=== PATIENT | female | born 1980 | race Caucasian/White ===

== ENCOUNTER 2020-07-11 13:10 | Outpatient (CLI) | payer OTHER, SELFPAY ==
--- NOTE | 2020-07-11 13:16 | US_ITS ---
WS: [id number] ULTRASOUND EARLY TECHNIQUE: Transabdominal sonography of the pelvis was performed. Followed by transvaginal sonography to better evaluate the uterus and ovaries. CLINICAL INFORMATION: SUPERVISION NORMAL Beta hCG: Unknown. COMPARISON: None. FINDINGS: UTERUS AND GESTATIONAL SAC Intrauterine gestations: Single live intrauterine with cardiac activity. Small amount of veliz bchorionic hemorrhage. Recommend short interval follow-up. Echogenic nodule within the gestational sa c may represent retracted clot. Estimated gestational age: 6w0d Yolk sac: 0.3 cm. [place] rump length (CRL): 0.3 cm. heart motion: 100 BPM. Subchorionic hemorrhage: Present Hypoechoic uterine lesion measuring 4.3 x 3.3 cm consistent with fibroid. OVARIES Right ovary: Right ovarian cyst measuring 1.9 x 1.5 x 1.6 cm. Additional complex right ovarian hemorr hagic cyst or corpus luteum cyst measuring 2.5 x 2.1 cm Left ovary: Normal. FREE FLUID Trace US/US OB <=14 wk fetus w transvag IMPRESSION: 1. Single live intrauterine . 2. Estimated gestational age; 6w0d. Estimated delivery March 06, 2021 3. Visualized cardiac activity and yolk sac. 4. Small amount of subchorionic hemorrhage. Recommend short interval follow-up . 5. Incidental right ovarian cyst. 6. Complex right ovarian hemorrhagic cyst or corpus luteum cyst measuring 2.5 cm
== END 2020-07-11 13:11 | disposition home or self-care (01) ==
PROVIDERS: PCP Nurse Practitioner Family; Visit Provider Family Medicine
DX: Z3A.01 Less than 8 weeks gestation of pregnancy (principal); O46.8X1 Other antepartum hemorrhage, first trimester; N83.201 Unspecified ovarian cyst, right side
CPT/HCPCS: 76801; 76817

== ENCOUNTER 2020-07-27 10:52 | Outpatient (CLI) | payer OTHER, SELFPAY ==
--- NOTE | 2020-07-27 10:55 | US_ITS ---
WS: [id number] OB ultrasound, 07/27/2020 Clinical Data: SUBCHRIONIC HEMATOMA Comparison: OB ultrasound, 07/11/2020. Findings: There is a single interuterine . There is a uterine fibroid measuring 3.70 x 4.23 x 4.30 cm in the uterus. There is also a smaller fibroid measuring 0.87 x 1.26 x 1.35 cm. heart rate is 1 67 beats per minute. The cervix is 3.42 cm and closed. The small subchorionic hematoma is smaller and it has almost totally resolved. There is a yolk sac present. The crown-rump length measured 1.7 cm. The estimated gestational age 8w1d is with an JARROD of approximately 03/07/2021. The left ovary measured 1.6 cm x 2.6 cm x 1.5 cm. The right ovary measured 2.1 cm x 2.6 cm x 3.6 cm. There is a right ovarian cyst measuring 1.41 x 1.5 4 x 1.66 cm. There is no fluid in the cul-de-sac US/US OB <=14 wk fetus w transvag Impression: 1. Single interuterine . 2. Estimated gestational age of 8w1d with an JARROD of 03/07/2021. 3. heart rate 167 beats per minute.
== END 2020-07-27 10:53 | disposition home or self-care (01) ==
LOC: US 10:53
PROVIDERS: PCP Nurse Practitioner Family; Visit Provider Family Medicine
DX: O43.891 Other placental disorders, first trimester (principal); Z3A.08 8 weeks gestation of pregnancy
CPT/HCPCS: 76801; 76817

== ENCOUNTER 2020-10-11 08:48 | Outpatient (CLI) | payer OTHER, SELFPAY ==
--- NOTE | 2020-10-11 08:55 | US_ITS ---
WS: [id number] ULTRASOUND TRANSABDOMINAL REASON FOR EXAM: ANATOMY/SUPERVISION OF NORMAL : 3 PARA: 0 COMPARISON: None available. FINDINGS: Single mild fetus in the breech presentation. Cervical length is 4.19 cm cm; closed. Small fibroid of uterus. Placenta grade 0, anterior and fundal with no low-lying segments. Normal three-vessel cord with temi l placental and insertion sites. cardiac tones 150 BPM. Four-chamber heart not well documented. Normal stomach, kidneys, and bladder. Normal lateral ventricles, cerebellum, and cisterna magnum. Normal extremities. Unable to see facial profile due to position. Biparietal diameter measures 4.4 cm, equals 19w3d. Head circumference measures 16.6 cm, equals 19w2d. Abdomen circumference measures 13.8 cm, equals 19w1d. Femur length measures 3.2 cm, equals 19w6d. Estimated gestational age 19w3d An estimated delivery 03/04/2021. Estimated weight 295 g. US/US OB >= 14 weeks fetus [id number] IMPRESSION: Single live intrauterine . Estimated gestational age 19w3d and estima lynette delivery 03/04/2021. Facial profile and four-chamber heart not well documented on this examination.
== END 2020-10-11 08:49 | disposition home or self-care (01) ==
LOC: RAD 08:51
PROVIDERS: PCP Family Medicine; Visit Provider Family Medicine
DX: Z34.92 Encounter for supervision of normal pregnancy, unspecified, second trimester (principal); Z3A.19 19 weeks gestation of pregnancy
CPT/HCPCS: 76805

== ENCOUNTER 2020-10-23 11:44 | Outpatient (CLI) | payer OTHER, SELFPAY ==
--- NOTE | 2020-10-23 11:46 | US_ITS ---
WS: [id number] [place] [id number] REASON FOR EXAM: SUPERVISION NORMAL FINDINGS: position has changed so that this examination documents a normal profile with normal cord insertion into the abdomen. Normal four-chamber heart is documented with normal outflow tracts. US/[place] [id number] IMPRESSION: profile and four-chamber heart are documented as normal on this follow-up examination.
== END 2020-10-23 11:45 | disposition home or self-care (01) ==
LOC: RAD 11:44
PROVIDERS: PCP Family Medicine; Visit Provider Family Medicine
DX: Z34.00 Encounter for supervision of normal first pregnancy, unspecified trimester (principal)
CPT/HCPCS: 76816

== ENCOUNTER 2020-10-29 17:55 | Outpatient (CLI) | payer OTHER, SELFPAY ==
[2020-10-29] VITALS (13 sets, daily range): BP systolic 0–145; BP diastolic 0–72; PULSE 84–96; RESP 16–17; TEMP 36.6–36.7; O2SAT 99; BMI 38.0
--- NOTE | 2020-10-29 18:36 | US_ITS ---
WS: [id number] ULTRASOUND OB LIMITED TECHNIQUE: Limited ultrasound examination of the fetus. CLINICAL INFORMATION: possible ROM COMPARISON: October 23, 2020 FINDINGS: Markedly decreased amniotic fluid volume compared to October 23, 2020 consistent with rupt ure of membranes. Single interuterine gestation. presentation is cephalic Placental location is anterior. Placenta grade: 0. heart rate 160 BPM. Anatomy: BDP: 5.2 cm = 21w4d HC: 19.4 cm = 21w5d AC: 16.7 cm = 21w5d FEMUR LENGTH: 3.7 cm = 21w5d Estimated weight: 443 g EGA by ultrasound: 21w5d JARROD by ultrasound: 03/06/2021 US/US OB limited [id number] IMPRESSION: 1. Single intrauterine gestation with estimated gestational age 21 weeks 5 day s and estimated delivery March 06, 2021 2. Placenta is anterior. 3. Markedly decreased amniotic fluid volume consistent with rupture of membran es.
--- NOTE | 2020-10-29 19:19 | P.HP_ITS ---
Providers/Chief Complaint Primary Care Provider: Kenroy Hawkins MD Chief Complaint: Vaginal Discharge History of Present Illness Lashonda Carr is a 39 year old at 21.5 weeks gestation by 6-week ultrasound. The patient was unsure of her LMP due to irregular periods. Her is complicated by miscarriage x2, small subchorionic hemorrhage on initial ultrasound, obesity, chronic colitis, low progesterone on suppleme ntation through first trimester, positive quad screen of 1 in 242 risk for Down syndrome, rubella nonimmune. The patient was in her normal state of health when she noticed a weird sensation in her vaginal area followed by a pop and significant fluid leakage. This took place at approximately 5:45 PM on 10/29/2020. The patient said it was uncontrollable. She came directly to the hospital and had further leakage of fluid in the wheelchair. The fluid on the chair was nitrazine positive. The patient did not have any contractions prior to or since this happened. I did a sterile spec exam without gel and pulling of amniotic fluid was noted in the vaginal vault with a strongly positive nitrazine. The patient was noted to be closed thick and high. For this reason the patient was admitted. The patient states that over the last few weeks she has had a cough that seem to clear. She will cough so hard sometimes that she will throw up. She was started on azithromycin on 10/16/2020 to cover for possible secondary infection. The patient denies any fevers, sore throat, nasal congestion, shortness of breath, chest pains, diarrhea, constipation, dysuria, vaginal bleeding, contractions. Medications/Allergies Allergies Allergy/AdvReac Type Severity Reaction Status Date / Time Penicillins Allergy ALGY-Anaphy Verified 10/29/20 19:58 laxis PFSH Acute PFSH: Surgical History (Updated 10/29/20 @ 19:25 by Kenroy Hawkins MD) History of tonsillectomy Social History (Updated 10/29/20 @ 19:25 by Kenroy Hawkins MD) Smoking and tobacco status: never smoked Alcohol intake: former Former alcohol use details: No alcohol since becoming . Substance/Drug Use: never Female Reproductive History: : 3 Vitals/I&O/Wt Last Vital Signs Pulse 96 10/29/20 19:14 BP 122/71 10/29/20 19:14 Physical Exam Narrative: EXAM NARRATIVE: General: Alert and oriented x3 Eyes: Pupils equal round and reactive to light and accommodation Mouth: Mucous membranes moist, pharynx non-erythematous Cardiac: Regular rate and rhythm without murmurs Lungs: Clear to auscultation bilaterally without wheezes, crackles or rhonchi Abdomen: Soft, non-tender, fundus consistent with gestational age Extremities: Trace edema in the bilateral lower extremities Pelvic: There is a large amount of fluid pooling in the vaginal vault that is clear and has no odor. Nitrazine is strongly positive. Cervix is visually closed, thick and high. No blood is noted. Data Other Labs: labs: Labs done on 07/06/2020 at [facility]: Progesterone level 8.8 ng/mL Labs done on 07/13/2020 at [facility]: White blood cell count 6.9 Hemoglobin 12.2 MCV 78.6 Platelet count 271 Progesterone level 6.6 ng/mL Antibody screen negative Blood type A positive RPR nonreactive Hepatitis B surface antigen nonreactive Rubella antibody less than 0.90 -patient is not immune to rubella HIV fourth-generation nonreactive Progesterone level 6.6 ng/mL TSH 2.69 Labs done on 09/13/2020 at [facility]: Quad screen: Result - Down syndrome risk 1 in 242. Age risk for Down syndrome 1 and 118. Trisomy 18 risk 1 in 3252 Risk for open neural tube defect less than 1 in 5000 A&P Additional A&P Information Lashondabishop Carr is a 39 year old at 21.5 weeks gestation by 6-week ultrasound. The patient was unsure of her LMP due to irregular periods. Her is complicated by unconfirmed miscarriage x2, small subchorionic hemorrhage on initial ultrasound, obesity, chronic colitis, low progesterone on supplementation through first trimester, positive quad screen of 1 in 242 risk for Down syndrome, rubella nonimmune, now with premature rupture of membranes at 21.5 weeks gestation. I spoke with the patient and her regarding the very concerning findings of PPROM at this gestational age. I spoke with them regarding the fact that chances of survival at this stage are very low and the only possible hope would be to prolong the by a number of weeks, however even then the risks would be quite high. I discussed the possibility of observation and transfer to a higher level of care where a NICU is available depending on the course. They would like to proceed with transfer to a higher level of care at this time. They would like to have everything done possible yet seem to have reasonable expectations. I spoke with Dr. Dio العراقي at [facility] in [place], [place] and he agreed to accept the patient in transfer. He stated that he will go ahead and give antibiotics and steroids if indicated at their facility after consultation with perinatology. He also said that he will do a Covid swab at his facility after arrival. GBS and bacterial vaginosis swabs were collected here. Those are currently pending. Of note the patient states that her parents told her that she almost as a child from a reaction to penicillin. The patient and her are in agreement with the current plan of care. Proceed with transfer of care as above. If you have any questions regarding the patient's care, please feel free to contact Dr. Kenroy Hawkins at [facility]. Call for questions. Consider this my final progress note. Attestations Medical Necessity Statement*: The patient is currently inpatient and her stay will require greater than 2 midnights upon transfer. Coding Level of Care Code Acute Bone Plant Supervisor for Renay Yanes
[2020-10-29 20:18] LABS: Basophils # 0.1 10^3/uL (0.0-0.1); Basophils % 0.5 %; Eosinophils # 0.1 10^3/uL (0.0-0.8); Eosinophils % 1.3 %; Hematocrit 40.7 % (37.0-47.0); Lymphocytes # 2.3 10^3/uL (0.8-4.8); Lymphocytes % 20.8 %; Mean Corpuscular HGB Conc 31.9 g/dL (30.0-36.0); Mean Corpuscular Hemoglobin 25.9 pg (28.0-34.0); Mean Corpuscular Volume 81.2 fL (81-99); Mean Platelet Volume 9.6 fL (7.4-10.4); Monocytes # 0.6 10^3/uL (0.2-0.9); Monocytes % 5.5 %; Neutrophils # 7.98 10^3/uL (1.8-7.7); Neutrophils % 71.5 %; Nucleated Red Blood Cells % 0 %; Platelet Count 277 10^3/cmm (130-400); Red Blood Count 5.01 10^6/uL (4.1-5.3); White Blood Count 11.2 10^3/uL (4.0-10.0)
[2020-10-29] MEDS: dextrose 5%-lactated ringers 1,000 ML 125 ML IV (20:20)
--- NOTE | 2020-10-29 20:27 | PC.NURSE ---
Report called to Roger Montgomery RN at [facility].
[2020-10-29 20:33] LABS: Alanine Aminotransferase 13 U/L (0-33); Albumin Level 3.5 g/dL (3.5-5.2); Alkaline Phosphatase 157 IU/L (35-105); Anion Gap 13.5 (5-19); Aspartate Amino Transferase 12 U/L (0-32); Blood Urea Nitrogen 7 mg/dL (6-20); Calcium 9.3 mg/dL (8.5-10.5); Carbon Dioxide 22 mmol/L (22-29); Chloride 103 mmol/L (98-107); Globulin 3.2 g/dL (1.3-4.6); Glomerular Filtration Rate 178.6 mL/min (90-130); Glucose 101 mg/dL (65-115); Osmolality Calculated 278 mOsm/kg (285-295); Potassium 3.5 mmol/L (3.5-5.1); Sodium 135 mmol/L (136-145); Total Bilirubin 0.2 mg/dL (0.15-1.2); Total Protein 6.7 g/dL (6.6-8.7)
[2020-10-29] MEDS: ondansetron 2 mg/ML SDV 2 mL 4 MG IVP (21:04)
--- NOTE | 2020-10-29 21:15 | PC.NURSE ---
Doppler heart tones in the 150's at this time.
--- NOTE | 2020-10-29 21:27 | PC.NURSE ---
EMS at bedside, report given and transfer of care at this time.
--- NOTE | 2020-10-29 22:12 | PC.NURSE ---
at nurses station, order received to transfer patient via ambulance to [facility], Dr. العراقي is the accepting physician. Upon discharging patient there was no transfer order in computer, physician not present in facility at this time. Spoke to Taylor Carr, detective supervisor, received authorization to enter physicians verbal order into record.
== END 2020-10-29 21:27 | disposition home or self-care (01) ==
LOC: OPOB 17:56 → OBGYN 10-30 07:56
PROVIDERS: PCP Family Medicine; Visit Provider Family Medicine
DX: O26.899 Other specified pregnancy related conditions, unspecified trimester (principal); Z3A.00 Weeks of gestation of pregnancy not specified; N89.8 Other specified noninflammatory disorders of vagina
CPT/HCPCS: 36415; 76805; 76815; 80053; 83986; 85025; 87070; 87081; 87106; 87205; 96360; 96375; 99211; J2405

== ENCOUNTER → 2021-09-05 14:30 | Outpatient (BNVA) | payer BC, SELFPAY | PROVIDERS: PCP Family Medicine; Referring Provider Family Medicine; Visit Provider Nurse Practitioner Women's Health | DX: N93.9 Abnormal uterine and vaginal bleeding, unspecified (principal) | CPT/HCPCS: 84443; 85025 ==

== ENCOUNTER → 2021-09-12 08:10 | Outpatient (BNVA) | payer BC, SELFPAY | PROVIDERS: PCP Family Medicine; Visit Provider Obstetrics & Gynecology | DX: N93.9 Abnormal uterine and vaginal bleeding, unspecified (principal) | CPT/HCPCS: 76830 ==

== ENCOUNTER → 2021-10-18 13:50 | Outpatient (BNVA) | payer BC, SELFPAY | PROVIDERS: PCP Family Medicine; Visit Provider Obstetrics & Gynecology | DX: Z20.822 Contact with and (suspected) exposure to COVID-19 (principal); N93.9 Abnormal uterine and vaginal bleeding, unspecified | CPT/HCPCS: 87635 ==

== ENCOUNTER 2021-10-23 07:53 | Day surgery (SDC) | payer BC, SELFPAY ==
[2021-10-22 14:34] VITALS: BMI 38.3
[2021-10-23 08:07] VITALS: BP 132/85; PULSE 105; RESP 18; TEMP 37.1; O2SAT 97
[2021-10-23 08:28] LABS: OR HCG Qualitative Urine Negative (Negative)
[2021-10-23] MEDS: acetaminophen 1,000 MG/100 ML PIGGYBACK 400 MG IV (08:29)
[2021-10-23] MEDS: sodium chloride 0.9% 1,000 ML 30 ML IV (08:29)
[2021-10-23] MEDS: ketorolac 30 mg/mL INJ IVP (08:30)
--- NOTE | 2021-10-23 08:51 | P.ANESASSM_ITS ---
Pre-Anesthetic Assessment Pre-Anesthetic Assessment: Height/Weight: Height 1.7 m Weight 111.13 kg Temp Pulse Resp BP Pulse Ox 98.7 F 105 H 18 132/85 97 10/23/21 08:07 10/23/21 08:07 10/23/21 08:07 10/23/21 08:07 10/23/21 08:07 Preop Diagnosis: uterine leiomyoma Proposed Procedure: Operation Date: 10/23/21 09:25 Proposed Procedures p Hysteroscopy w/ Myosure(Not Applicable) - Adeline Najera MD s Dilation And Curettage (D&C)(Not Applicable) - Adeline Najera MD Was Beta Mitzy taken within 24 hours: N/A Was Clonidine taken within 24 hours: N/A Last intake: Intake Last Liquid Date 10/22/21 Last Liquid Time 22:00 Last Solid Date 10/22/21 Last Solid Time 21:00 Social: Social History: No tobacco Exam: Pre-Anes Outpt Exam: alert, oriented x 3, clear to auscultation bilaterally and regular rate & rhythm Airway: Submandibular: WNL Cervical ROM: WNL MP: 2 Dentition: Full History/ROS: No significant history except as noted Pulmonary: Pulmonary: None reported CV/HEM: Comments: Recurrent uterine bleeding with symptoms including syncope (while lying down) w/o head trauma. : : None reported Hepatic: Hepatic: None reported GI: GI: None reported Metabolic: Metabolic: None reported Neuropsych: Neuropsych: None reported Anesthetic Plan: ASA status: 2 Anesthesia: Anesthesia Evaluation, General and MAC Risk of > 500 ml blood loss (7ml/kg in children): No Other Pertinent Information: Discussed risk of anesthetic and benefits. Plan MAC w/ possible conversion to general. Discussed nature of MAC being a spectrum of anesthesia between very awake and alert to deep/general anesthesia. We discussed risks with a real possibility of recall of conversations, monitor sounds, surgical sensation/pain, and other stimuli. We discussed goals of MAC including patient's overall comfort (though intermittent pain is possible), patient safety breathing spontaneously with supplemental O2, successful completion of the procedure, and facilitation of more rapid recovery from anesthesia. Meds/Allergies Current Medications: Current Medications Generic Name Dose Route Start Last Admin Trade Name Freq PRN Reason Stop Dose Admin Sodium Chloride 1,000 mls @ 30 ml s/hr 10/23/21 08:00 10/23/21 08:29 Sodium Chloride 0.9% IV 10/24/21 07:59 30 mls/hr .Q24H GABBIE Administration PFSH Anesthesia PFSH: Medical History No pertinent past medical history neghx: htn,dm,thyroid,dvt/pe PCP: [facility] History of tonsillectomy and adenoidectomy as a child Family History Grandfather Colon cancer Maternal--dx age 80's Stroke Maternal Father Hypercholesteremia Hypertension Grandmother No problems noted. Denies family history of Ovarian cancer Diabetes Heart disease Breast cancer Uterine cancer Thyroid disease Female Reproductive History: Date of last menstrual period: 10/03/21 Data Anesthesia Other Labs: Laboratory Results - last 48 hr 10/23/21 08:27 Urine HCG, Qual Negative Cardiac Studies: No Data to Display
[2021-10-23] MEDS: doxycycline 100 MG in sodium chloride 0.9% (plus) 100 ML IV (10:05)
--- NOTE | 2021-10-23 10:17 | W.PM.OPSUD ---
Surgery/Procedure H&P Update DATE OF PROCEDURE: October 23, 2021 DATE H&P PERFORMED: 10/18/21 H&P UPDATE INFORMATION: I have reviewed H&P completed within last 30 days, I have examined patient prior to procedure and No changes to prior documentation PREOP DIAGNOSIS: uterine leiomyoma PLANNED PROCEDURE: Operation Date: 10/23/21 09:25 Proposed Procedures p Hysteroscopy w/ Myosure(Not Applicable) - Adeline Najera MD s Dilation And Curettage (D&C)(Not Applicable) - Adeline Najera MD Related Problem List Diagnoses (1) Uterine leiomyoma:
--- NOTE | 2021-10-23 11:18 | PM.OP ---
Operative Report Date of procedure: October 23, 2021 Pre-op Diagnosis: uterine leiomyoma Post-op diagnosis: same Post-op Findings: Thickened endometrium Procedure Done: hysteroscopy, dilation and curettage with myosure Specimens removed/disposition: endometrial curettings to pathology Anesthesia: MAC Estimated blood loss (mL): 2 IV fluids (mL): 500 Complications: none Findings: 7 week sized uterus 300 ml hysteroscopy deficit Condition: stable Disposition: same day Procedure: The patient was taken to the operating room where monitored anesthesia was administered and to be adequate. She was prepped and draped in the normal sterile fashion in the dorsal lithotomy position in [facility]. A weighted speculum was placed into the vagina and the anterior lip of the cervix grasped with a single-tooth tenaculum. The uterus was sounded to 7 cm. The cervix was dilated to 17 [place]. The hysteroscope was advanced into the endometrial cavity. There was excessive tissue visualized. The MyoSure device was activated and the tissue was removed. Pictures were taken pre procedure. there was bleeding from the fibroids making the fluid too murky for photos. All instruments were removed. The patient tolerated the procedure well. Sponge lap and needle counts were correct x3. She was taken to the recovery room in stable condition.
[2021-10-23 11:26] VITALS: BP 109/65; PULSE 96; RESP 14; TEMP 36.2; O2SAT 94
--- NOTE | 2021-10-23 11:26 | PM.DCS ---
Discharge Providers Date of Discharge: October 23, 2021 Attending Provider at Discharge: Adeline Najera MD Primary Care Provider: Kenroy Hawkins MD Diagnoses at Discharge Discharge Diagnosis (1) Uterine leiomyoma: Status: Acute Reason for Visit Reason for Visit: abnormal uterine bleeding Hospital Course Hospital Course The patient was admitted for surgery. she did well postoperatively and was ready for discharge. She had an insulin level drawn prior to discharge. She will follow up in 1 week for postop. Discharge Data Data Completed and Pending: Pending at discharge Category Date Time Status ES surgery / GI i mages Routine Exams 10/23/21 10:22 Taken Pathology: Surgic al [PTH] Routine Pth 10/23/21 11:17 Ordered Labs from last 24 hours 10/23/21 08:27 Urine HCG, Qual Negative Vitals: Last Vital Signs Temp 98.7 F 10/23/21 08:07 Pulse 105 H 10/23/21 08:07 Resp 18 10/23/21 08:07 BP 132/85 10/23/21 08:07 Pulse Ox 97 10/23/21 08:07 Discharge Plan Discharge Patient Disposition: Home Condition: Stable Prescriptions: Continued Low-Ogestrel (28) 0.3-30 mg-mcg tablet 1 tab PO DAILY Qty: 28 RF: 12 ibuprofen 800 mg tablet 800 mg PO Q8H RF: 0 Discharge Orders: Discharge Order (Routine); Ordered 10/23/21 Ordered By: Adeline Najera Discharge Attestations Time Spent in Discharge Care*: less than 30 min Quality Metrics Clinical Quality Measures During this hospital stay, did patient experience: None Coding Level of Care Code Acute Chg FW DC note Diagnoses Uterine leiomyoma D25.9
[2021-10-23 11:30] VITALS: BP 108/77; PULSE 96; RESP 16; TEMP 36.5; O2SAT 95
[2021-10-23 11:38] VITALS: BP 102/63; PULSE 104; RESP 18; TEMP 36.1; O2SAT 97
[2021-10-23 11:52] VITALS: BP 102/63; PULSE 103; RESP 18; TEMP 36.6; O2SAT 98
[2021-10-23] MEDS: ibuprofen 800 mg tablet PO (12:05)
--- NOTE | 2021-10-23 15:48 | ANE.PACU2 ---
Inpatient post-anesthesia follow up: Airway intact: Yes Vital signs: Temperature 97.8 F Pulse Rate 103 Respiratory Rate 18 Blood Pressure 102/63 Pulse Oximetry 98 Oxygen Delivery Me thod Room Air Oxygen Flow Rate Fraction of Inspir ed Oxygen Hydration adequate: Yes Nausea and vomiting: No Pain level: 4 Mental status: Baseline
== END 2021-10-23 12:17 | disposition home or self-care (01) ==
PROVIDERS: PCP Family Medicine; Visit Provider Obstetrics & Gynecology
PROC: 0UDB8ZZ Extraction of Endometrium, Via Natural or Artificial Opening Endoscopic (ICD-10-PCS; CPT 58558; principal; 2021-10-23 09:20)
PROC: (CPT 58120; 2021-10-23 09:20)
DX: D25.9 Leiomyoma of uterus, unspecified (principal); R93.89 Abnormal findings on diagnostic imaging of other specified body structures
CPT/HCPCS: 58558; 81025; 84703; 88305; 96365; J1885; J2405; J2704; J3010; J3490; J7030

== ENCOUNTER → 2021-10-29 15:05 | Outpatient (BNVA) | payer BC, SELFPAY | PROVIDERS: PCP Family Medicine; Visit Provider Obstetrics & Gynecology | DX: E66.01 Morbid (severe) obesity due to excess calories; N92.6 Irregular menstruation, unspecified | CPT/HCPCS: 83036; 83525 ==

== ENCOUNTER 2022-06-13 07:29 | Emergency (ER) | payer BC, SELFPAY ==
[2022-06-13] VITALS (7 sets, daily range): BP systolic 109–127; BP diastolic 64–80; PULSE 74–101; RESP 14–15; TEMP 36.4–36.6; O2SAT 96–99; BMI 38.4
--- NOTE | 2022-06-13 07:47 | W.ED.WEAKNES ---
HPI - Weakness General: Chief complaint: Weakness Stated complaint: Weakness Time Seen by Provider: 06/13/22 07:31 Source: patient Mode of arrival: ambulatory History of Present Illness: 41-year-old female at 17 weeks gestation. Presents with stomach upset mild upper respiratory symptoms and vomiting. She has had symptoms last 2 to 3 days.. No fever sweats chills no productive cough. Has not had any vaginal bleeding AC/A dysuria urgency or frequency. Subjective low-grade fever at home. MD Complaint: generalized weakness Onset (ago): day(s) (2-3) Duration: constant Location: generalized Severity: mild Relieving factors: none Exacerbating factors: none Associated symptoms: Reports decreased appetite, nausea and vomiting; Denies chest pain, chills, confusion, melena, diaphoresis, dysuria, easy bruising, fever(s), headache(s), myalgias, rash, short of breath or syncope Review of Systems Const: Denies: fever(s), chills or diaphoresis ENMT: Denies: throat pain, ear or mastoid pain, nasal discharge or nasal congestion Card: Denies: chest pain or syncope Resp: Denies: dyspnea, productive cough or non-productive cough GI: Reports: nausea, vomiting and GI cramping; Denies: abdominal pain, hematemesis, diarrhea, bloating, hematochezia or melena : Denies: flank pain, difficulty voiding, dysuria, urinary frequency or urinary urgency Skin/Breast: Denies: rash or pruritus Neuro: Denies: headache(s) or confusion Los/Lymph: Denies: easy bruising PFSH ED PFSH: Medical History No pertinent past medical history neghx: htn,dm,thyroid,dvt/pe PCP: [facility] Surgical History History of tonsillectomy and adenoidectomy as a child Family History Grandfather Colon cancer Maternal--dx age 80's Stroke Maternal Father Hypercholesteremia Hypertension Grandmother No problems noted. Denies family history of Ovarian cancer Diabetes Heart disease Breast cancer Uterine cancer Thyroid disease Female Reproductive History: Date of last menstrual period: 10/03/21 Physical Exam Const: COMMON NORMALS: no acute distress GENERAL APPEARANCE: cooperative and comfortable ORIENTATION/CONSCIOUSNESS: Yes awake, Yes oriented to person, Yes oriented to place and Yes oriented to time HENMT: COMMON NORMALS: normocephalic, atraumatic and hearing grossly normal bilaterally HEAD & SCALP: normocephalic and atraumatic Resp: COMMON NORMALS: normal respiratory effort, No retractions, No use of accessory muscles and clear to auscultation bilaterally AUSCULTATION: clear to auscultation bilaterally Cardio: COMMON NORMALS: regular rate, regular rhythm and No murmurs present (Cardio) RATE: regular rate RHYTHM: regular rhythm GI: COMMON NORMALS: Soft to palpation and No hepatosplenomegaly present AUSCULTATION: Yes normoactive bowel sounds PALPATION: Yes Soft to palpation, No Tenderness to palpation present (GI), No Guarding due to palpation present (GI) and Yes No hepatosplenomegaly present Extremity: COMMON NORMALS: normal to inspection, capillary refill normal, no clubbing, cyanosis or edema, no calf tenderness and no pedal edema Neuro: SENSORIUM/ORIENTATION: Yes oriented to person, Yes oriented to place and Yes oriented to time Skin: COMMON NORMALS: no rashes or lesions noted GENERAL SKIN EXAM: no rashes or lesions noted Course Vital Signs: Vital signs: Vital Signs Temperature 97.5 F L 06/13/22 08:12 Pulse Rate 81 06/13/22 12:00 Respiratory Rate 15 06/13/22 08:12 Blood Pressure 118/67 06/13/22 12:00 Pulse Oximetry 98 06/13/22 12:00 Oxygen Delivery Me thod 06/13/22 12:00 MDM - Weakness Medical Decision Making Improved with IV fluids. Clear liquid diet for 24 to 48 hours promethazine to use as needed advance diet as tolerated Medical Records I reviewed the patient's medical records. Lab Data I reviewed the patient's lab results. : 06/13/22 08:00 06/13/22 08:00 Laboratory Results WBC 6.7 10^3/uL (4.0-10.0) 06/13/22 08:00 RBC 5.05 10^6/uL (4.1-5.3) 06/13/22 08:00 Hgb 12.1 g/dL (11.5-15.3) 06/13/22 08:00 Hct 38.0 % (37.0-47.0) 06/13/22 08:00 MCV 75.2 fl (81-99) L 06/13/22 08:00 MCH 24.0 pg (28.0-34.0) L 06/13/22 08:00 MCHC 31.8 g/dL (30.0-36.0) 06/13/22 08:00 RDW 15.0 % (12.1-15.1) 06/13/22 08:00 Plt Count 265 10^3/cmm (130-400) 06/13/22 08:00 MPV 9.9 fL (7.4-10.4) 06/13/22 08:00 Neut % (Auto) 66.2 % 06/13/22 08:00 Lymph % (Auto) 21.0 % 06/13/22 08:00 [place] % (Auto) 10.2 % 06/13/22 08:00 Eos % (Auto) 1.5 % 06/13/22 08:00 Baso % (Auto) 0.3 % 06/13/22 08:00 Neut # (Auto) 4.41 10^3/uL (1.8-7.7) 06/13/22 08:00 Lymph # (Auto) 1.4 10^3/uL (0.8-4.8) 06/13/22 08:00 [place] # (Auto) 0.7 10^3/uL (0.2-0.9) 06/13/22 08:00 Eos # (Auto) 0.1 10^3/uL (0.0-0.8) 06/13/22 08:00 Baso # (Auto) 0.0 10^3/uL (0.0-0.1) 06/13/22 08:00 Nucleated RBC % (auto) 0 % 06/13/22 08:00 Nucleated RBCs # 0.0 /100WBC 06/13/22 08:00 Sodium 136 mmol/L (136-145) 06/13/22 08:00 Potassium 3.7 mmol/L (3.5-5.1) 06/13/22 08:00 Chloride 102 mmol/L (98-107) 06/13/22 08:00 Carbon Dioxide 20 mmol/L (22-29) L 06/13/22 08:00 Anion Gap 17.7 (5-19) 06/13/22 08:00 BUN 6 mg/dL (6-20) 06/13/22 08:00 Creatinine 0.4 mg/dL (0.5-0.9) L 06/13/22 08:00 GFR Calculation 176.8 mL/min (90-130) H 06/13/22 08:00 Glucose 93 mg/dL (65-115) 06/13/22 08:00 Calculated Osmolality 279 mOsm/kg (285-295) L 06/13/22 08:00 Calcium 8.8 mg/dL (8.5-10.5) 06/13/22 08:00 Total Bilirubin 0.2 mg/dL (0.15-1.2) 06/13/22 08:00 AST 10 U/L (0-32) 06/13/22 08:00 ALT 10 U/L (0-33) 06/13/22 08:00 Alkaline Phosphatase 139 IU/L (35-105) H 06/13/22 08:00 Total Protein 6.2 g/dL (6.6-8.7) L 06/13/22 08:00 Albumin 3.2 g/dL (3.5-5.2) L 06/13/22 08:00 Globulin 3.0 g/dL (1.3-4.6) 06/13/22 08:00 Urine Color Yellow (Yellow) 06/13/22 09:35 Urine Appearance Clear (CLEAR) 06/13/22 09:35 Urine pH 6 (5-7) 06/13/22 09:35 Ur Specific [place] 1.010 (1.005-1.030) 06/13/22 09:35 Urine Protein Neg (Negative) 06/13/22 09:35 Urine Glucose (UA) Norm (Normal) 06/13/22 09:35 Urine Ketones 1+ (Negative) H 06/13/22 09:35 Urine Blood 3+ (Negative) H 06/13/22 09:35 Urine Nitrate Negative (Negative) 06/13/22 09:35 Urine Bilirubin Neg (Negative) 06/13/22 09:35 Urine Urobilinogen 1 mg/dL (Negative) H 06/13/22 09:35 Ur Leukocyte Esterase Negative (Negative) 06/13/22 09:35 Urine RBC Too numerous to cnt /hpf (0-2) H 06/13/22 08:20 Urine WBC 10-15 /hpf (0-5) H 06/13/22 08:20 Ur Squamous Epith Cells 80-100 /hpf (0-5) H 06/13/22 08:20 Calcium Oxalate Crystal 0-4 /hpf H 06/13/22 08:20 Amorphous Sediment Not Reportable 06/13/22 08:20 Urine Bacteria 2+ /hpf (NONE) H 06/13/22 08:20 Discharge Plan Discharge Patient Disposition: Home Clinical Impression: Nausea & vomiting, Condition: Stable Prescriptions: New promethazine 25 mg tablet 25 mg PO Q6H PRN (Reason: nausea and vomiting) Qty: 20 0RF No Action ondansetron 4 mg tablet,disintegrating 4 mg PO Q6H PRN (Reason: Nausea) prenat.vits,malka,oed-[id number] Tablet 1 tab PO DAILY Discharge Orders: Discharge ED (Routine); Ordered 06/13/22 Ordered By: Armando Munoz Referrals: Kenroy Hawkins MD [Primary Care Provider] - Discharge Diet: Clear Liquid Discharge Activity: Increase activity as tolerated Patient Instructions: Opioid Safety Activity Restrictions/Additional Instructions: Trial of the promethazine instead of ondansetron for nausea. Recheck with your primary care physician/OB tomorrow. Stand Alone Forms: Work/School Release Coding Level of Care Code ED Crawler Tractor Operator for Renay Yanes
[2022-06-13] MEDS: promethazine 25 mg/mL SDV 1 mL IM (08:05)
[2022-06-13] MEDS: sodium chloride 0.9% 1,000 ML 999 ML IV ×2 (08:13→11:00)
[2022-06-13 08:16] LABS: Basophils % 0.3 %; Eosinophils # 0.1 10^3/uL (0.0-0.8); Eosinophils % 1.5 %; Hemoglobin 12.1 g/dL (11.5-15.3); Lymphocytes # 1.4 10^3/uL (0.8-4.8); Mean Corpuscular HGB Conc 31.8 g/dL (30.0-36.0); Mean Corpuscular Volume 75.2 fl (81-99); Mean Platelet Volume 9.9 fL (7.4-10.4); Monocytes # 0.7 10^3/uL (0.2-0.9); Monocytes % 10.2 %; Neutrophils # 4.41 10^3/uL (1.8-7.7); Neutrophils % 66.2 %; Nucleated Red Blood Cells % 0 %; Platelet Count 265 10^3/cmm (130-400); Red Blood Count 5.05 10^6/uL (4.1-5.3); White Blood Count 6.7 10^3/uL (4.0-10.0)
[2022-06-13 08:58] LABS: Alanine Aminotransferase 10 U/L (0-33); Albumin Level 3.2 g/dL (3.5-5.2); Alkaline Phosphatase 139 IU/L (35-105); Anion Gap 17.7 (5-19); Aspartate Amino Transferase 10 U/L (0-32); Blood Urea Nitrogen 6 mg/dL (6-20); Calcium 8.8 mg/dL (8.5-10.5); Carbon Dioxide 20 mmol/L (22-29); Chloride 102 mmol/L (98-107); Glomerular Filtration Rate 176.8 mL/min (90-130); Glucose 93 mg/dL (65-115); Osmolality Calculated 279 mOsm/kg (285-295); Potassium 3.7 mmol/L (3.5-5.1); Sodium 136 mmol/L (136-145); Total Bilirubin 0.2 mg/dL (0.15-1.2); Total Protein 6.2 g/dL (6.6-8.7)
[2022-06-13 09:09] LABS: Glucose Urine UA Norm (Normal); Ketones Urine 1+ (Negative); Protein Urine 1+ (Negative); Urine Appearance Hazy (CLEAR); Urine Color Yellow (Yellow); pH Urine 6 (5-7)
[2022-06-13 09:10] LABS: Add Urine Microscopic? YES; Bilirubin Urine 2+ (Negative); Blood Urine 3+ (Negative); Leukocyte Esterase Urine 2+ (Negative); Nitrate Urine Negative (Negative); Urobilinogen Urine 4 mg/dL (Negative)
[2022-06-13 09:13] LABS: RBC Urine TOO NUMEROUS TO CNT /hpf (0-2)
[2022-06-13 09:16] LABS: Add Urine Culture? Yes; Bacteria Urine 2+ /hpf; Calcium Oxalate Crystals Urine 0-4 /hpf; Squamous Epithelial Cell Urine 80-100 /hpf (0-5)
[2022-06-13 11:01] LABS: Charge for UA Resulting for Rev
[2022-06-13 11:28] LABS: Urine Color Yellow (Yellow)
[2022-06-13 11:29] LABS: Bilirubin Urine Neg (Negative); Blood Urine 3+ (Negative); Glucose Urine UA Norm (Normal); Ketones Urine 1+ (Negative); Leukocyte Esterase Urine Negative (Negative); Nitrate Urine Negative (Negative); Protein Urine Neg (Negative); Urine Appearance Clear (CLEAR); Urobilinogen Urine 1 mg/dL (Negative); pH Urine 6 (5-7)
[2022-06-13 11:31] LABS: Add Urine Microscopic? YES
== END 2022-06-13 12:20 | disposition home or self-care (01) ==
PROVIDERS: Emergency Provider Family Medicine; PCP Family Medicine
DX: O26.892 Other specified pregnancy related conditions, second trimester (principal); R11.2 Nausea with vomiting, unspecified; Z3A.17 17 weeks gestation of pregnancy
CPT/HCPCS: 51701; 80053; 81001; 81003; 85025; 87086; 96360; 96372; 99284; J2550; J7030

== ENCOUNTER 2022-07-04 06:33 | Outpatient (CLI) | payer BC, SELFPAY ==
--- NOTE | 2022-07-04 07:12 | US_ITS ---
WS: [id number] OB ultrasound, 07/04/2022 Clinical Data: 18 WEEKS GESTATION Comparison: None. Findings: There is a single intrauterine in a variable lie. The placenta is Anterior and grade 0. The re is a normal amount of amnionic fluid. The heart rate is 144 beats per minute. The cervix is 5.10 cm and closed. Measurements of growth and development: BPD: 4.6 cm 20 weeks 0 days HC: 17.5 cm 20 weeks 0 days AC: 15.7 cm 20 weeks 6 days FL: 3.4 cm 19 weeks 3 days The estimated weight is 365 or approximately 13 ounces. The estimated gestational age is 20w3d with an JARROD of approximately 11/18/2022. anatomy show a normal stomach, kidneys, bladder, cord insertion, three-vessel cord, cord insert ion, entire spine, upper and lower extremities, RVOT, LVOT, four-chamber heart, lateral cerebral vent ricles, cerebellum and cisterna magna. The mouth was seen but the lips and nose were not well visuali zed. The brain structures were not well visualized. Female gender was noted. US/US OB >= 14 weeks fetus [id number] Impression: 1. Single intrauterine in vertex presentation. 2. Estimated gestational age 20w3d with an JARROD of 11/18/2022. 3. heart rate 144 beats per minute.
== END 2022-07-04 06:34 | disposition home or self-care (01) ==
LOC: RAD 06:35
PROVIDERS: PCP Family Medicine; Visit Provider Family Medicine
DX: Z34.92 Encounter for supervision of normal pregnancy, unspecified, second trimester (principal); Z3A.20 20 weeks gestation of pregnancy
CPT/HCPCS: 76805

== ENCOUNTER 2022-07-30 05:46 | Outpatient (CLI) | payer BC, SELFPAY ==
[2022-07-30] VITALS (54 sets, daily range): BP systolic 100–149; BP diastolic 60–94; PULSE 88–179; RESP 16–17; TEMP 36.1; O2SAT 94–100; BMI 39.6
--- NOTE | 2022-07-30 06:11 | US_ITS ---
WS: [id number] ULTRASOUND OB FOCUSED HISTORY: Possible premature rupture of membranes. COMPARISON: 07/04/2022 Cervical canal is widely open. There is cervical insufficiency. New finding since 07/04/2022. ab domen is noted along the lower uterine segment. Amniotic fluid index is 16.6 cm. heart rate at 144 BPM. US/US OB limited [id number] IMPRESSION: 1. Marked cervical insufficiency. Cervical canal is widely patent. 2. Normal amniotic fluid index remains. Notified Tressa Wall MD at time of examination.
[2022-07-30] MEDS: betamethasone susp 6 mg/mL 5 mL 12 MG IM (06:22)
[2022-07-30] MEDS: magnesium sulfate premix 4 GM/100 ML PREMIX IV (07:06)
[2022-07-30] MEDS: dextrose 5%-lactated ringers 1,000 ML 75 ML IV (07:07)
[2022-07-30 07:15] LABS: Basophils # 0.1 10^3/uL (0.0-0.1); Basophils % 0.6 %; Eosinophils # 0.2 10^3/uL (0.0-0.8); Hematocrit 35.9 % (37.0-47.0); Hemoglobin 11.1 g/dL (11.5-15.3); Lymphocytes # 1.8 10^3/uL (0.8-4.8); Mean Corpuscular HGB Conc 30.9 g/dL (30.0-36.0); Mean Corpuscular Hemoglobin 24.2 pg (28.0-34.0); Mean Corpuscular Volume 78.4 fl (81-99); Mean Platelet Volume 10.2 fL (7.4-10.4); Monocytes # 0.7 10^3/uL (0.2-0.9); Monocytes % 6.5 %; Neutrophils # 7.86 10^3/uL (1.8-7.7); Neutrophils % 73.2 %; Nucleated Red Blood Cells % 0 %; Platelet Count 245 10^3/cmm (130-400); Red Blood Count 4.58 10^6/uL (4.1-5.3); Red Cell Distribution Width 14.8 % (12.1-15.1); White Blood Count 10.7 10^3/uL (4.0-10.0)
[2022-07-30] MEDS: magnesium sulfate premix 20 GM/500 ML BAG IV (07:30)
[2022-07-30 07:36] LABS: Nitrazine Paper, PH Positive
--- NOTE | 2022-07-30 07:58 | ANES.PREANE2 ---
Pre-Anesthetic Assessment Height/Weight: Height 1.68 m Weight 111.584 kg Temp Pulse BP Pulse Ox 97.0 F L 93 142/83 99 07/30/22 05:54 07/30/22 07:55 07/30/22 07:46 07/30/22 07:55 Preop Diagnosis: uterine leiomyoma Medications/Allergies Home Medications Medication Instructions Recorded Confirmed Last Taken Type prenat.vits,malka,uli-jrea-ylugt 1 tab PO DAILY 06/13/22 07/30/22 Unknown History Allergies Allergy/AdvReac Type Severity Reaction Status Date / Time Penicillins Allergy ALGY-Anaphy Verified 07/30/22 06:39 laxis Current Medications Generic Name Dose Route Start Last Admin Trade Name Freq PRN Reason Stop Dose Admin Betamethasone Acet/Betameth SodPhos 12 mg 07/30/22 06:15 07/30/22 06:22 Betamethasone Susp 6 Mg/Ml 5 Ml IM 07/31/22 06:16 12 mg Q24H GABBIE Administration Dextrose/Lactated Ringer's 1,000 mls @ 125 mls/hr 07/30/22 07:00 07/30/22 07:07 Dextrose 5%-Lactated Ringers IV 75 mls/hr .Q8H GABBIE Administration Vancomycin HCl 2,000 mg/ 500 mls @ 250 mls/hr 07/30/22 07:30 07/30/22 07:16 Sodium Chloride IV 250 mls/hr Q8H GABBIE Administration As Directed [facility] Anesthesia Medical History No pertinent past medical history neghx: htn,dm,thyroid,dvt/pe PCP: [facility] Surgical History History of tonsillectomy and adenoidectomy as a child Family History Grandfather Colon cancer Maternal--dx age 80's Stroke Maternal Father Hypercholesteremia Hypertension Grandmother No problems noted. Denies family history of Ovarian cancer Diabetes Heart disease Breast cancer Uterine cancer Thyroid disease Female Reproductive History Date of last menstrual period: 10/03/21 : 2 Data Anesthesia : 07/30/22 06:50 Short CBC 07/30/22 Range/Units 06:50 WBC 10.7 H (4.0-10.0) 10^3/uL Hgb 11.1 L (11.5-15.3) g/dL Hct 35.9 L (37.0-47.0) % MCV 78.4 L (81-99) fl Plt Count 245 (130-400) 10^3/cmm Neut % (Auto) 73.2 % Neut # (Auto) 7.86 H (1.8-7.7) 10^3/uL Blood Bank 07/30/22 06:50 Blood Type A Positive Rho(D) Type Positive Antibody Screen Negative Cardiac Studies: No Data to Display
--- NOTE | 2022-07-30 08:30 | PM.TDS ---
Transfer Summary Providers Date of Admission: 07/30/22 08:02 Date of Discharge/Transfer: 07/30/22 Attending Provider at Admission: Tressa Wall MD Attending Provider at Transfer: Tressa Wall MD Primary Care Provider: Kenroy Hawkins MD Transfer Plans: Anticipated date of transfer: 07/30/22. Reason for Visit Reason for Visit Vaginal Bleeding, 23.6 weeks Hospital Course Hospital Course This is a 41-year-old G2, P0 at 23 weeks 6 days gestation with an JARROD of 11/20/2022 who presented complaining of vaginal bleeding. She woke up this morning to urinate and when she stood up she felt like she urinated on herself. This was not uncommon for her. She went to the restroom to put on a pad and noticed that she had some pink spotting. After that she had some light bleeding on the pad that was bright red. She presented to labor and delivery. She was complaining of some minor cramping. heart tones were reassuring in the 140s. She was horace approximately once every 8 minutes. Her vaginal vault was moist and bloodstained. Ultrasound was immediately performed and it was noted that her cervix is open (about 1/4 of the width of the presenting part) at its narrowest/external os. Fluid around the appears normal. The infant is breech. She was immediately started on betamethasone 12 mg IM, vancomycin because she is allergic to penicillins, and magnesium. She currently is not horace on the Mag. She has had no further bleeding. I contacted the laborist Dr. Santamaria at [facility] who is willing to accept the patient. She will be transferred via helicopter. She has a prior history of demise at 22 weeks gestation due to SROM/no fluid. For that her labor was induced. Physical Exam Narrative: Alert and oriented, supine in Trendelenburg, heart regular rate and rhythm, lungs clear to auscultation bilaterally, abdomen is soft and nontender, extremities have no calf tenderness. Urinary Catheter Management: Guillermo: Cath Placed During This Visit: yes Urinary Catheter Date of Insertion: 07/30/22 Urinary Catheter Time of Insertion: 07:00 TS Data Studies Completed and Pending Pending at discharge Category Date Time Status Retype for Patiets ABO/Rh Routine Lab 07/30/22 07:49 Ordered Labs from last 24 hours 07/30/22 07/30/22 06:50 06:50 WBC 10.7 H RBC 4.58 Hgb 11.1 L Hct 35.9 L MCV 78.4 L MCH 24.2 L MCHC 30.9 RDW 14.8 Plt Count 245 MPV 10.2 Neut % (Auto) 73.2 Lymph % (Auto) 17.0 [place] % (Auto) 6.5 Eos % (Auto) 2.0 Baso % (Auto) 0.6 Neut # (Auto) 7.86 H Lymph # (Auto) 1.8 [place] # (Auto) 0.7 Eos # (Auto) 0.2 Baso # (Auto) 0.1 Nucleated RBC % (auto) 0 Nucleated RBCs # 0.0 Blood Type A Positive Rho(D) Type Positive Antibody Screen Negative Completed Studies During Hospitalization Category [place] [id number] Stat Ultrasound 07/30/22 06:11 Completed Laboratory Last Values WBC 10.7 10^3/uL (4.0-10.0) H 07/30/22 06:50 RBC 4.58 10^6/uL (4.1-5.3) 07/30/22 06:50 Hgb 11.1 g/dL (11.5-15.3) L 07/30/22 06:50 Hct 35.9 % (37.0-47.0) L 07/30/22 06:50 MCV 78.4 fl (81-99) L 07/30/22 06:50 MCH 24.2 pg (28.0-34.0) L 07/30/22 06:50 MCHC 30.9 g/dL (30.0-36.0) 07/30/22 06:50 RDW 14.8 % (12.1-15.1) 07/30/22 06:50 Plt Count 245 10^3/cmm (130-400) 07/30/22 06:50 MPV 10.2 fL (7.4-10.4) 07/30/22 06:50 Neut % (Auto) 73.2 % 07/30/22 06:50 Lymph % (Auto) 17.0 % 07/30/22 06:50 [place] % (Auto) 6.5 % 07/30/22 06:50 Eos % (Auto) 2.0 % 07/30/22 06:50 Baso % (Auto) 0.6 % 07/30/22 06:50 Neut # (Auto) 7.86 10^3/uL (1.8-7.7) H 07/30/22 06:50 Lymph # (Auto) 1.8 10^3/uL (0.8-4.8) 07/30/22 06:50 [place] # (Auto) 0.7 10^3/uL (0.2-0.9) 07/30/22 06:50 Eos # (Auto) 0.2 10^3/uL (0.0-0.8) 07/30/22 06:50 Baso # (Auto) 0.1 10^3/uL (0.0-0.1) 07/30/22 06:50 Nucleated RBC % (auto) 0 % 07/30/22 06:50 Nucleated RBCs # 0.0 /100WBC 07/30/22 06:50 Blood Type A Positive 07/30/22 06:50 Rho(D) Type Positive 07/30/22 06:50 Antibody Screen Negative 07/30/22 06:50 Radiology Impressions Obstetrics Ultrasound 07/30/22 06:11 IMPRESSION: 1. Marked cervical insufficiency. Cervical canal is widely patent. 2. Normal amniotic fluid index remains. Notified Tressa Wall MD at time of examination. Recent Clincial Data Last Vital Signs Temp 97.0 F L 07/30/22 05:54 Pulse 105 H 07/30/22 08:27 BP 131/76 07/30/22 08:27 Pulse Ox 94 07/30/22 08:27 Vital Signs Temp Pulse BP Pulse Ox 07/30/22 08:27 105 H 131/76 94 07/30/22 08:25 90 100 07/30/22 08:21 150 H 119/80 07/30/22 08:20 91 100 07/30/22 08:17 179 H 108/70 07/30/22 08:15 100 100 07/30/22 08:12 98 134/74 07/30/22 08:10 97 100 07/30/22 08:05 96 100 07/30/22 08:02 95 100/69 07/30/22 08:00 95 99 07/30/22 07:56 88 126/71 07/30/22 07:55 93 99 07/30/22 07:50 104 H 100 07/30/22 07:46 93 142/83 07/30/22 07:45 96 99 07/30/22 07:41 95 146/94 07/30/22 07:40 97 99 07/30/22 07:37 96 143/87 07/30/22 07:35 99 98 07/30/22 07:31 94 137/65 07/30/22 07:30 96 97 07/30/22 07:20 104 H 99 07/30/22 07:16 96 129/66 07/30/22 07:15 100 98 07/30/22 07:11 100 134/69 07/30/22 07:10 100 134/71 97 07/30/22 06:44 98 135/72 07/30/22 06:20 96 138/64 07/30/22 06:05 96 136/63 07/30/22 05:54 97.0 F L 07/30/22 05:54 100 142/60 Intake & Output/Weight 07/28/22 07/29/22 07/30/22 07/31/22 06:59 06:59 06:59 06:59 Intake Total 100 / 100 Balance 100 / 100 Weight 111.584 kg Vitals Last Vital Signs Temp 97.0 F L 07/30/22 05:54 Pulse 105 H 07/30/22 08:27 BP 131/76 07/30/22 08:27 Pulse Ox 94 07/30/22 08:27 TS Medications Medications Betamethasone Acet/Betameth SodPhos (Betamethasone Susp 6 Mg/Ml 5 Ml) 12 mg IM Q24H [facility] Stop: 07/31/22 06:16 Last Admin: 07/30/22 06:22 Dose: 12 mg Dextrose/Lactated Ringer's (Dextrose 5%-Lactated Ringers) 1,000 mls @ 125 mls/hr IV .Q8H [facility] Last Admin: 07/30/22 07:07 Dose: 75 mls/hr Magnesium Sulfate (Magnesium Sulfate Premix) 20 gm in 500 mls @ 50 mls/hr IV .Q10H [facility] Last Admin: 07/30/22 07:30 Dose: 50 mls/hr Vancomycin HCl 2,000 mg/ (Sodium Chloride) 500 mls @ 250 mls/hr IV Q8H GABBIE Last Admin: 07/30/22 07:16 Dose: 250 mls/hr Discontinued Medications Magnesium Sulfate (Magnesium Sulfate Premix) 4 gm in 100 mls @ 300 mls/hr IV ONCE ONE Stop: 07/30/22 07:07 Last Infusion: 07/30/22 08:29 Dose: Infused Ondansetron HCl (Ondansetron 2 Mg/Ml Sdv 2 Ml) 4 mg IVP ONCE ONE Stop: 07/30/22 08:26 Allergies Penicillins Allergy (Verified 07/30/22 06:39) ALGY-Anaphylaxis Home Medications prenat.vits,malka,ugo-vpcs-sguzy 1 tab PO DAILY 06/13/22 [History Confirmed 07/30/22] Discharge Plan Discharge Patient Disposition: Home Prescriptions: No Action prenat.vits,malka,kxt-eykn-gefgf Tablet 1 tab PO DAILY Patient Instructions: Opioid Safety Transfer Attestations Time Spent in Transfer Care: greater than 30 min Quality Metrics Clinical Quality Measures [ No reported AMI, CVA or VTE this stay] Coding Level of Care Code Acute Swatcher for Renay Yanes
--- NOTE | 2022-07-30 09:01 | US_ITS ---
WS: [id number] Obstetrical ultrasound, limited. HISTORY: Evaluate position of fetus. Cervical insufficiency. Comparison made to prior study obtained earlier the same day. Again noted is marked cervical insufficiency. The cervical os is widely open containing amniotic flui d. The fetus is now within the fundal portion of the uterus. Largest anterior posterior diameter is 2 .4 cm near the internal cervical os. US/US OB limited [id number] IMPRESSION: Very limited evaluation to assess position the fetus only. Fetus is within the fundal portion of the uterus. Again noted is diffuse cervic al insufficiency. Dr. Wall present during the exam.
[2022-07-30] MEDS: ondansetron 2 mg/ML SDV 2 mL 4 MG IVP (09:11)
[2022-07-30 09:31] LABS: Glucose Point of Care 95 mg/dL (70-110)
[2022-07-30] MEDS: promethazine 25 mg/mL SDV 1 mL IM (09:45)
--- NOTE | 2022-07-30 10:27 | PC.NURSE ---
Transfer summary Enrique RNs at bedside at 0930. Full SBAR report given. Tommy Camejo RN gave full report to MARIANA Garza at [facility] labor and delivery at 0939. Enrique left facility with patient at 1010.
== END 2022-07-30 10:10 | disposition home or self-care (01) ==
LOC: OPOB 05:47 → OBGYN 05:47 → OPOB 05:49 → OBGYN 07:25 → OPOB 08:02 → OBGYN 08:13
PROVIDERS: PCP Family Medicine; Visit Provider Family Medicine
DX: O60.02 Preterm labor without delivery, second trimester (principal); O46.92 Antepartum hemorrhage, unspecified, second trimester; Z3A.23 23 weeks gestation of pregnancy
CPT/HCPCS: 36415; 36416; 51702; 76815; 82962; 83986; 85025; 86850; 86900; 96372; 99211; J0702; J2405; J2550; J3370; J3475; J7040

== ENCOUNTER 2023-08-17 19:48 | Emergency (ER) | payer BC, SELFPAY ==
[2023-08-17 19:59] VITALS: BP 139/97; PULSE 123; RESP 18; TEMP 37; O2SAT 96; BMI 37.9
--- NOTE | 2023-08-17 20:14 | XRR_ITS ---
PROCEDURE INFORMATION: Exam: XR Chest Exam date and time: 08/17/2023 8:22 PM Age: 42 years old Clinical indication: Patient HX: Cough; Fever; Headache; Neg covid TECHNIQUE: Imaging protocol: Radiologic exam of the chest. Views: 1 view. COMPARISON: ES surgery / GI images 10/23/2021 10:22 AM FINDINGS: Lungs: Unremarkable. No consolidation. Pleural spaces: Unremarkable. No pleural effusion. No pneumothorax. Heart/Mediastinum: Unremarkable. No cardiomegaly. Bones/joints: Unremarkable. XR/XR chest 1V portable [id number] IMPRESSION: No acute findings.
--- NOTE | 2023-08-17 20:17 | ED_ITS ---
HPI - Nausea/Vomiting/Diarrhea General: Chief complaint: Nausea/Vomiting/Diarrhea Stated complaint: Fever\N\V\Conjestions\Headache Time Seen by Provider: 08/17/23 20:04 Source: patient and family Mode of arrival: ambulatory Limitations: no limitations History of Present Illness: This patient comes to the emergency department because of persistent cough with associated vomiting and sometimes vomiting without coughing. She states her symptoms began approximately 7 days ago with upper airway symptoms of congestion and drainage and progressed to cough which is progressed to recurrent vomiting. She states she had a temperature of 101 today. She is unaware of any known exposure to infectious disease. Apparently was seen last week at [facility] had a negative COVID test at that time. Otherwise she is in good health takes no medications other than vitamins. She has no history of cardiopulmonary disease. She has had previous COVID immunizations. He states her urine output has been less than normal. She has not had any blood in her emesis. She has had some loose stools as well. No abdominal pain. MD elicited complaint: vomiting Associated nausea: Yes Associated symtoms: Reports nausea; Denies change in vision, chest pain, dysuria, headache(s), palpitations or syncope Review of Systems Const: Reports: fever(s) and chills Eyes: Denies: change in vision ENMT: Reports: nasal discharge and nasal congestion; Denies: odynophagia Card: Denies: chest pain, palpitations, syncope or pre-syncope Resp: Reports: non-productive cough; Denies: wheezing GI: Reports: nausea and vomiting; Denies: abdominal pain : Denies: flank pain, difficulty voiding, dysuria or urinary frequency Musc: Denies: neck pain, back pain, extremity pain or extremity swelling Skin/Breast: Denies: rash Neuro: Denies: headache(s), numbness in extremities or weakness in extremities PFSH ED PFSH: Medical History No pertinent past medical history neghx: htn,dm,thyroid,dvt/pe PCP: [facility] History of tonsillectomy and adenoidectomy as a child Family History Grandfather Colon cancer Maternal--dx age 80's Stroke Maternal Father Hypercholesteremia Hypertension Grandmother No problems noted. Denies family history of Ovarian cancer Diabetes Heart disease Breast cancer Uterine cancer Thyroid disease Social History Substance/Drug Use: never Physical Exam Narrative: EXAM NARRATIVE: The patient's appears to be comfortable however she has intermittent paroxysms of cough in and spitting up. Is able to answer questions goal-directed fashion and speaks in complete sentences. Const: COMMON NORMALS: patient oriented x3 and alert GENERAL APPEARANCE: cooperative NUTRITIONAL APPEARANCE: overweight HENMT: COMMON NORMALS: normocephalic, Normal nasal mucous membranes and turbinates present, moist oral mucous membranes and oropharynx normal HEAD & SCALP: normocephalic NOSE: Normal nasal mucous membranes and turbinates present Eye: COMMON NORMALS: Equal, round and reactive pupils present, EOMs intact bilaterally and conjunctivae normal CONJUNCTIVA: Yes conjunctivae normal PUPIL: Yes Equal, round and reactive pupils present Neck/C-Spine: COMMON NORMALS: full ROM, no lymphadenopathy, supple and No carotid bruits Chest: COMMONS NORMALS: normal inspection of the chest Resp: COMMON NORMALS: No retractions, No use of accessory muscles and clear to auscultation bilaterally EFFORT & INSPECTION: Yes able to speak in complete sentences and Yes Actively coughing AUSCULTATION: clear to auscultation bilaterally Cardio: COMMON NORMALS: regular rate, regular rhythm, No murmurs present (Cardio) and Peripheral pulses 2+ throughout RATE: regular rate RHYTHM: regular rhythm PERIPHERAL PULSES: Peripheral pulses 2+ throughout GI: COMMON NORMALS: Normal to inspection, nondistended, normoactive bowel sounds present, Soft to palpation and non-tender INSPECTION: Yes central obesity PALPATION: Yes Soft to palpation : COMMON NORMALS: Yes no CVA tenderness BLADDER/KIDNEY EXAM: Yes no CVA tenderness Back/Pelvis: COMMON NORMALS: no CVA tenderness, thoracic and lumbar spine normal to inspection, no thoracic nor lumbar tenderness and thoraco-lumbar ROM normal Extremity: COMMON NORMALS: normal to inspection, full ROM, capillary refill normal, no joint enlargement, no calf tenderness and no pedal edema Neuro: COMMON NORMALS: patient oriented x3, moves all extremities, no focal motor deficits and no sensory deficits noted SENSORIUM/ORIENTATION: Yes alert Psych: COMMON NORMALS: mental status grossly normal Skin: COMMON NORMALS: no rashes or lesions noted, no wounds and turgor normal GENERAL SKIN EXAM: no rashes or lesions noted and turgor normal Course Reevaluation(s): Reevaluation #1: Patient states she is feeling a bit better she is coughing much less after her dilator treatment. I discussed current findings and their implications and the plan of care with both she and her spouse. She voices understanding and is agreeable to the plan of care. Time: 21:48 Vital Signs: Vital signs: Vital Signs Temperature 98.6 F 08/17/23 19:59 Pulse Rate 105 H 08/17/23 20:47 Respiratory Rate 16 08/17/23 20:47 Blood Pressure 123/75 08/17/23 20:47 Pulse Oximetry 99 08/17/23 20:47 Oxygen Delivery Me thod Room Air 08/17/23 20:42 MDM - Nausea/Vomiting/Diarrhea Medical Decision Making This patient came to the emergency department because she has had coughing which apparently is triggered episodes of vomiting and she is also had some independent vomiting. This is without any abdominal pain. She is been exposed to others who have been ill. She states that she has had decreased intake due to her coughing and vomiting with decreased urine output. She also allegedly had a fever to 101+ today. Her clinical examination revealed her to be actively coughing but no respiratory distress. She had a elevated heart rate on initial presentation without fever. She was not hypoxic and had normal blood pressures. No other focal findings on clinical examination. Work-up was initiated as well as therapy to help with her symptoms. She received a DuoNeb treatment which actually helped her cough considerably. She received IV hydration while laboratories and radiographs were obtained. Radiograph was unremarkable for any evidence of pneumonia or other worrisome pulmonary condition. She had a leukocytosis a unremarkable chemistry but had did have a significant evidence of urinary tract infection with significant pyuria bacteria noted. She did respond to therapy in the emergency department. No evidence to suggest overwhelming infection sepsis COVID-19 pneumonia etc. She is being treated for bronchitis as well as a concomitant urinary tract infection with antibiotics bronchodilators and antitussives. The antibiotics are primarily for the urinary tract infection not the bronchitis. We discussed all findings with both she and spouse, anticipated course of illness and return precautions. Lab Data I reviewed the patient's lab results. 08/17/23 20:32 08/17/23 20:32 Laboratory Results WBC 14.02 10^3/uL (3.29-11.43) H 08/17/23 20: RBC 5.15 10^6/uL (3.85-5.65) 08/17/23 20: Hgb 11.90 g/dL (11.27-16.99) 08/17/23: Hct 38.1 % (36-47) 08/17/23 20: MCV 74.0 fl (85-98) L 08/17/23 20: MCH 23.1 pg (27-33) L 08/17/23: MCHC 31.2 g/dL (30-55) 08/17/23: RDW 13.7 % (12.1-15.1) 08/17/23 20: Plt Count 445 10^3/cmm (157-399) H 08/17/23: MPV 9.4 fL (7.4-10.4) 08/17/23: Neut % (Auto) 74.2 % 08/17/23: Lymph % (Auto) 13.9 % 08/17/23: Hodgeman % (Auto) 9.8 % 08/17/23: Eos % (Auto) 0.8 % 08/17/23: Baso % (Auto) 0.6 % 08/17/23: Neut # (Auto) 10.41 10^3/uL (1.8-7.7) H 08/17/23: Lymph # (Auto) 2.0 10^3/uL (0.8-4.8) 08/17/23: Hodgeman # (Auto) 1.4 10^3/uL (0.2-0.9) H 08/17/23: Eos # (Auto) 0.1 10^3/uL (0.0-0.8) 08/17/23: Baso # (Auto) 0.1 10^3/uL (0.0-0.1) 08/17/23: Nucleated RBC % (auto) 0 % 08/17/23 20:32 Nucleated RBCs # 0.0 /100WBC 08/17/23 20:32 Sodium 135 mmol/L (136-145) L 08/17/23 20:32 Potassium 3.3 mmol/L (3.5-5.1) L 08/17/23 20:32 Chloride 94 mmol/L (98-107) L 08/17/23 20:32 Carbon Dioxide 27 mmol/L (22-29) 08/17/23 20:32 Anion Gap 17.3 (5-19) 08/17/23 20:32 BUN 9 mg/dL (6-20) 08/17/23 20:32 Creatinine 0.9 mg/dL (0.5-0.9) 08/17/23 20: GFR Calculation 69.0 mL/min (90-130) L 08/17/23 20:32 Glucose 124 mg/dL (65-115) H 08/17/23 20:32 Calculated Osmolality 280 mOsm/kg (285-295) L 08/17/23 20:32 Calcium 9.3 mg/dL (8.5-10.5) 08/17/23 20:32 Total Bilirubin 0.4 mg/dL (0.15-1.2) 08/17/23 20:32 AST 16 U/L (0-32) 08/17/23 20:32 ALT 23 U/L (0-33) 08/17/23 20:32 Alkaline Phosphatase 171 U/L (35-105) H 08/17/23 20:32 Total Protein 8.0 g/dL (6.6-8.7) 08/17/23 20:32 Albumin 3.9 g/dL (3.5-5.2) 08/17/23 20:32 Globulin 4.1 g/dL (1.3-4.6) 08/17/23 20:32 Lipase 21 U/L (13-60) 08/17/23 20:32 Urine Color Yellow (Yellow) 08/17/23 20:55 Urine Appearance Cloudy (CLEAR) A 08/17/23 20:55 Urine pH 6 (5-7) 08/17/23 20:55 Ur Specific Chauncey 1.010 (1.005-1.030) 08/17/23 20:55 Urine Protein 2+ (Negative) H 08/17/23 20:55 Urine Glucose (UA) Norm (Normal) 08/17/23 20:55 Urine Ketones 1+ (Negative) H 08/17/23 20:55 Urine Blood 3+ (Negative) H 08/17/23 20:55 Urine Nitrate Negative (Negative) 08/17/23 20:55 Urine Bilirubin 1+ (Negative) H 08/17/23 20:55 Urine Urobilinogen 1 mg/dL (Negative) H 08/17/23 20:55 Ur Leukocyte Esterase 2+ (Negative) H 08/17/23 20:55 Urine RBC 15-25 /hpf (0-2) H 08/17/23 20:55 Urine WBC >100 /hpf (0-5) H 08/17/23 20:55 Ur Squamous Epith Cells 5-10 /hpf (0-5) H 08/17/23 20:55 Amorphous Sediment 1+ /hpf 08/17/23 20:55 Urine Bacteria 2+ /hpf (NONE) H 08/17/23 20:55 Urine Mucus Trace /hpf 08/17/23 20:55 SARS-CoV-2 Ag (Rapid) negative (Negative) 08/17/23 20:40 Imaging Data CXR: I personally reviewed and interpreted this imaging study as follows: My impression: Chest x-ray does not show any evidence of infiltrate or any other acute process at this time. XR interpretation done by ED provider, pending radiology final review Discharge Plan Discharge Patient Disposition: Home Clinical Impression: Acute bronchitis, Urinary tract infection Condition: Stable Prescriptions: New albuterol sulfate [ProAir HFA] 90 mcg/actuation HFA aerosol inhaler 2 inh inhalation QID PRN (Reason: shortness of breath or wheezing) Qty: 6.7 0RF cephalexin 500 mg capsule 500 mg PO TID 7 Days Qty: 21 0RF benzonatate 100 mg capsule 100 mg PO Q6H PRN (Reason: cough) Qty: 30 0RF No Action prenat.vits,malka,[id number] Tablet 1 tab PO DAILY Discharge Orders: Discharge ED (Routine); Ordered 08/17/23 Ordered By: Al Alexander Referrals: Brianna Carreno FNP [Primary Care Provider] - Discharge Diet: Advance as tolerated Discharge Activity: Increase activity as tolerated Patient Instructions: Opioid Safety, Pain Management Activity Restrictions/Additional Instructions: You have bronchitis which is a inflammatory airway condition whichUsually is viral in nature and may take up to 2 to 3 weeks to resolve. We have provided an inhaler and that she responded well to that could have medicine in the emergency department and so that may help your cough in addition we have provided a cough pill to help your cough as well. Also a tablespoon of honey can help with your cough. You also have evidence of a kidney or urinary tract infection that we have provided antibiotics for. It is important you drink at least 2 quarts of water daily. If your symptoms do not continue to improve with the above therapy or worsen at any time return to this or the nearest emergency department for reevaluation. Coding Level of Care Code ED [employer] for Renay Yanes
[2023-08-17 20:39] LABS: Basophils # 0.1 10^3/uL (0.0-0.1); Basophils % 0.6 %; Eosinophils # 0.1 10^3/uL (0.0-0.8); Eosinophils % 0.8 %; Hematocrit 38.1 % (36-47); Lymphocytes % 13.9 %; Mean Corpuscular HGB Conc 31.2 g/dL (30-55); Mean Corpuscular Hemoglobin 23.1 pg (27-33); Mean Platelet Volume 9.4 fL (7.4-10.4); Monocytes # 1.4 10^3/uL (0.2-0.9); Monocytes % 9.8 %; Neutrophils # 10.41 10^3/uL (1.8-7.7); Neutrophils % 74.2 %; Nucleated Red Blood Cells % 0 %; Platelet Count 445 10^3/cmm (157-399); Red Blood Count 5.15 10^6/uL (3.85-5.65); Red Cell Distribution Width 13.7 % (12.1-15.1); White Blood Count 14.02 10^3/uL (3.29-11.43)
[2023-08-17] MEDS: ipratropium-albuterol 3 mL Neb INHALATION (20:39)
[2023-08-17 20:42] VITALS: PULSE 107; RESP 16; O2SAT 100
[2023-08-17 20:47] VITALS: BP 123/75; PULSE 105; RESP 16; O2SAT 99
[2023-08-17] MEDS: ondansetron 2 mg/ML SDV 2 mL 4 MG IVP (20:50)
[2023-08-17] MEDS: sodium chloride 0.9% 1,000 ML 999 ML IV (20:51)
[2023-08-17 20:59] LABS: Alanine Aminotransferase 23 U/L (0-33); Albumin Level 3.9 g/dL (3.5-5.2); Alkaline Phosphatase 171 U/L (35-105); Anion Gap 17.3 (5-19); Aspartate Amino Transferase 16 U/L (0-32); Blood Urea Nitrogen 9 mg/dL (6-20); Calcium 9.3 mg/dL (8.5-10.5); Carbon Dioxide 27 mmol/L (22-29); Chloride 94 mmol/L (98-107); Globulin 4.1 g/dL (1.3-4.6); Glucose 124 mg/dL (65-115); Lipase 21 U/L (13-60); Osmolality Calculated 280 mOsm/kg (285-295); Potassium 3.3 mmol/L (3.5-5.1); Sodium 135 mmol/L (136-145); Total Bilirubin 0.4 mg/dL (0.15-1.2)
[2023-08-17 21:02] LABS: SARS Covid-2 Antigen negative (Negative)
[2023-08-17 21:30] LABS: Glucose Urine UA Norm (Normal); Ketones Urine 1+ (Negative); Protein Urine 2+ (Negative); Urine Appearance Cloudy (CLEAR); Urine Color Yellow (Yellow); pH Urine 6 (5-7)
[2023-08-17 21:31] LABS: Add Urine Culture? Yes; Add Urine Microscopic? YES; Amorphous Sediment Urine 1+ /hpf; Bacteria Urine 2+ /hpf; Bilirubin Urine 1+ (Negative); Blood Urine 3+ (Negative); Leukocyte Esterase Urine 2+ (Negative); Mucus Urine TRACE /hpf; Nitrate Urine Negative (Negative); Other Sediment, Urine T; RBC Urine 15-25 /hpf (0-2); Urobilinogen Urine 1 mg/dL (Negative); WBC Urine >100 /hpf (0-5)
[2023-08-17] MEDS: ceFAZolin 1,000 MG in sodium chloride 0.9% (plus) 50 ML 100 MG IV (21:53)
[2023-08-17 22:26] VITALS: BP 123/75; PULSE 105; RESP 16; TEMP 37; O2SAT 99
== END 2023-08-17 22:27 | disposition home or self-care (01) ==
PROVIDERS: Emergency Provider Emergency Medicine; PCP Nurse Practitioner Family
DX: J20.9 Acute bronchitis, unspecified (principal); N39.0 Urinary tract infection, site not specified; Z11.52 Encounter for screening for COVID-19
CPT/HCPCS: 71045; 80053; 81001; 83690; 85025; 87077; 87086; 87186; 87426; 94640; 96365; 96375; 99284; J0690; J2405; J7030

== ENCOUNTER 2025-04-29 14:08 | Outpatient (CLI) | payer BC, SELFPAY ==
--- NOTE | 2025-04-29 14:16 | MM_ITS ---
WS: [id number] BILATERAL 3D TOMOSYNTHESIS DIGITAL SCREENING MAMMOGRAPHY WITH CAD CLINICAL INFORMATION: SCREENING HISTORY: Screening mammogram. No current complaints. COMPARISON: Baseline TECHNIQUE: Bilateral CC and MLO views. FINDINGS: The breasts are composed of heterogeneous fibroglandular density tissue, which can limit the detection of small underlying mass lesions. No suspicious mass, asymmetry, calcifications, or architectural distortion. No evidence of malignancy. MM/MM scr tomosynthesis [id number] IMPRESSION: DENSITY: The breasts are heterogeneously dense, which may obscure small masses. BI-RADS: 1 - Negative FOLLOW UP: 1 Year Follow-up Recommend return to annual screening mammography.
== END 2025-04-29 14:09 | disposition home or self-care (01) ==
LOC: RAD 14:12
PROVIDERS: PCP Nurse Practitioner Family; Visit Provider Nurse Practitioner Family
DX: Z12.31 Encounter for screening mammogram for malignant neoplasm of breast (principal); R92.333 Mammographic heterogeneous density, bilateral breasts
CPT/HCPCS: 77063; 77067

== ENCOUNTER 2025-07-27 06:55 | Outpatient (CLI) | payer BC, SELFPAY ==
[2025-07-27 07:42] LABS: Calcium 9.2 mg/dL (8.5-10.5)
== END 2025-07-27 06:56 | disposition home or self-care (01) ==
LOC: LAB 06:55
PROVIDERS: PCP Nurse Practitioner Family; Visit Provider Internal Medicine
DX: N25.81 Secondary hyperparathyroidism of renal origin (principal); E55.9 Vitamin D deficiency, unspecified
CPT/HCPCS: 36415; 82306; 82310; 83970

== ENCOUNTER 2025-08-08 07:09 | Outpatient (CLI) | payer BC, SELFPAY ==
[2025-08-08 10:22] LABS: Creatinine 24 Hour Urine 999.0 mg/dL (601-1689); Total Volume Urine 675 ml
[2025-08-08 10:31] LABS: Calcium 24 Hour Urine 133 mg/24hr (100-300); Urine Calcium Result 19.7 mg/dL
== END 2025-08-08 07:10 | disposition home or self-care (01) ==
PROVIDERS: PCP Nurse Practitioner Family; Visit Provider Internal Medicine
DX: E55.9 Vitamin D deficiency, unspecified (principal); N25.81 Secondary hyperparathyroidism of renal origin
CPT/HCPCS: 82340; 82570

== ENCOUNTER 2025-08-12 16:56 | Outpatient (CLI) | payer BC, SELFPAY ==
--- NOTE | 2025-08-12 17:15 | US_ITS ---
WS: [id number] THYROID ULTRASOUND HISTORY: Dysphagia. COMPARISON: None available. Right lobe: 1.2 cm x 1.4 cm x 3.9 cm (w x ap x l). Volume: 3.0 cm3. Normal size and echotexture. No significant are dominant nodules are present. Left lobe: 1.2 cm x 1.5 cm x 4.4 cm (w x ap x l). Volume: 3.8 cm3. Normal size and echotexture. No significant or dominant nodules are present. Small colloid cysts in the LEFT thyroid. The largest measures 0.6 x 0.5 x 0.8 cm in the lower pole. No solid mass. Isthmus: 0.4 cm. US/US thyroid [id number] IMPRESSION: TI-RADS 2; no suspicious nodules. No FNA or follow-up necessary.
== END 2025-08-12 16:57 | disposition home or self-care (01) ==
LOC: RAD 17:02
PROVIDERS: PCP Nurse Practitioner Family; Visit Provider Internal Medicine
DX: R13.10 Dysphagia, unspecified (principal)
CPT/HCPCS: 76536